=== PATIENT | female | born 1980 | race Hispanic/Latino ===

== ENCOUNTER 2023-07-04 14:01 | Observation (INO) | payer MEDICAID ==
[~2023-07-04] VITALS: Ht 152.4 cm; Wt 88.0 kg
[2023-07-04 14:10] VITALS: BP 125/74; PULSE 115; RESP 16; O2SAT 100
[2023-07-13] MEDS ORDERED: NPH,100V SQ (01:39)
[2023-07-13] MEDS ORDERED: FERR-72 PO (01:39)
[2023-07-13] MEDS ORDERED: PREN-67 PO (01:39)
[2023-07-13] MEDS ORDERED: INSU100C6 SQ (01:39)
== END 2023-07-04 16:00 | disposition home or self-care (01) ==
LOC: EDH 14:01 → LDH 14:02 → EDH 14:13
PROVIDERS: ADMIT Obstetrics & Gynecology; ATTEND Obstetrics & Gynecology
DX: O62.9 Abnormality of forces of labor, unspecified (principal); Z3A.36 36 weeks gestation of pregnancy
CPT/HCPCS: 59025; G0378 ×2; G0379